=== PATIENT | female | born 1985 | race African-American/Black ===

== ENCOUNTER 2019-04-24 07:02 | Emergency (ER) | payer OTHER ==
[~2019-04-24] VITALS: Ht 157.5 cm; Wt 63.6 kg
[2019-04-24] MEDS ORDERED: IBUPROFEN 600 MG TAB PO ONE (07:45)
--- NOTE | 2019-04-24 09:10 | REP ---
RIGHT HAND, FOUR VIEWS: There is no evidence of an acute fracture, dislocation or intrinsic bone disease. IMPRESSION: No fracture or dislocation. Electronically Signed by Ahsan Billings MD 04/24/2019 04:25 P
[2019-04-24 09:43] VITALS: BP 108/68
== END 2019-04-24 09:43 | disposition home or self-care (01) ==
LOC: M ED 07:02
DX: S60.111A Contusion of right thumb with damage to nail, initial encounter (principal); W23.0XXA Caught, crushed, jammed, or pinched between moving objects, initial encounter; Y92.093 Driveway of other non-institutional residence as the place of occurrence of the external cause; Y92.810 Car as the place of occurrence of the external cause

== ENCOUNTER 2019-06-13 03:46 | Emergency (ER) | payer OTHER ==
[~2019-06-13] VITALS: Ht 157.5 cm; Wt 65.9 kg
[2019-06-13 06:38] LABS: BASO % 0.4 % (0.0-1.0); EOS # 0.1 10^3/uL (0.0-0.50); EOS % 1.6 % (0.0-3.0); HEMATOCRIT 37.8 % (36.0-47.0); HEMOGLOBIN 12.7 g/dl (12.0-15.5); LYMPH # 3.5 10^3/uL (1.5-4.5); LYMPH % 46.9 % (24.0-44.0); MEAN CORPUSCULAR HEMOGLOBIN 32.4 pg (27.0-33.0); MEAN CORPUSCULAR HGB CONC 33.6 g/dl (32.0-36.5); MEAN CORPUSCULAR VOLUME 96.4 fl (80.0-96.0); MONO # 0.6 10^3/uL (0.0-0.8); MONO % 8.2 % (0.0-5.0); NEUTROPHILS # 3.1 10^3/uL (1.8-7.7); NEUTROPHILS % 42.6 % (36.0-66.0); PLATELET COUNT, AUTOMATED 251 10^3/uL (150-450); RED BLOOD COUNT 3.92 10^6/uL (4.00-5.40); WHITE BLOOD COUNT 7.4 10^3/uL (4.0-10.0)
[2019-06-13] MEDS ORDERED: NS 1,000 ML IV ONE (07:00)
[2019-06-13 07:01] LABS: BLOOD UREA NITROGEN 15 MG/DL (7-18); CARBON DIOXIDE LEVEL 27 MEQ/L (21-32); CHLORIDE LEVEL 105 MEQ/L (98-107); CREATININE FOR GFR 0.82 MG/DL (0.55-1.30); GLOMERULAR FILTRATION RATE > 60.0 (>60); GLUCOSE, FASTING 88 MG/DL (70-100); POTASSIUM SERUM 4.2 MEQ/L (3.5-5.1); SODIUM LEVEL 139 MEQ/L (136-145)
[2019-06-13 07:02] LABS: ALBUMIN 3.8 GM/DL (3.2-5.2); ALT/SGPT 21 U/L (12-78); BILIRUBIN,DIRECT < 0.1 MG/DL (0.0-0.2); BILIRUBIN,TOTAL 0.3 MG/DL (0.2-1.0); LIPASE 145 U/L (73-393); TOTAL PROTEIN 7.5 GM/DL (6.4-8.2)
[2019-06-13] MEDS ORDERED: ONDANSETRON 4MG/2ML VIAL (J2405) IV ONE (07:15)
[2019-06-13 10:08] VITALS: BP 102/63
== END 2019-06-13 10:05 | disposition home or self-care (01) ==
LOC: M ED 03:46
DX: A08.4 Viral intestinal infection, unspecified (principal)
CPT/HCPCS: 80048; 80076; 81001; 83690; 84702; 85025; 96361; 96374; 99284; J2405

== ENCOUNTER 2020-01-19 03:21 | Emergency (ER) | payer OTHER ==
[~2020-01-19] VITALS: Ht 157.5 cm; Wt 68.2 kg
[2020-01-19 04:15] LABS: INFLUENZA A AMPLIFICATION NEGATIVE (NEGATIVE); INFLUENZA B AMPLIFICATION POSITIVE (NEGATIVE)
[2020-01-19 04:58] VITALS: BP 109/67
== END 2020-01-19 04:59 | disposition home or self-care (01) ==
LOC: M ED 03:21
DX: J11.89 Influenza due to unidentified influenza virus with other manifestations (principal)

== ENCOUNTER 2020-08-16 06:27 | Emergency (ER) | payer OTHER ==
[~2020-08-16] VITALS: Ht 157.5 cm; Wt 68.8 kg
[2020-08-16] MEDS ORDERED: ACETAMINOPHEN 500 MG TAB PO ONE (07:00)
[2020-08-16] MEDS ORDERED: IBUPROFEN 800 MG TAB PO ONE (07:00)
--- NOTE | 2020-08-16 07:21 | REPVR ---
PROCEDURE INFORMATION: Exam: CT Head Without Contrast Exam date and time: 08/16/2020 6:48 AM Age: 35 years old Clinical indication: Injury or trauma; Fall; Initial encounter; Blunt trauma (contusions or hematomas); Additional info: Fall and injury to face with unknown loc TECHNIQUE: Imaging protocol: Computed tomography of the head without contrast. Radiation optimization: All CT scans at this facility use at least one of these dose optimization techniques: automated exposure control; mA and/or kV adjustment per patient size (includes targeted exams where dose is matched to clinical indication); or iterative reconstruction. COMPARISON: No relevant prior studies available. FINDINGS: Brain: Normal. No hemorrhage. Unremarkable white matter. No mass effect. Ventricles: No ventriculomegaly. Bones/joints: Unremarkable. No acute fracture. Paranasal sinuses: Visualized sinuses are unremarkable. No fluid levels. Mastoid air cells: Visualized mastoid air cells are well aerated. Soft tissues: Unremarkable. IMPRESSION: No acute intracranial abnormality. Electronically signed by: Amalia Ramirez On 08/16/2020 07:21:19 AM
--- NOTE | 2020-08-16 07:22 | REPVR ---
PROCEDURE INFORMATION: Exam: CT Maxillofacial Without Contrast Exam date and time: 08/16/2020 6:48 AM Age: 35 years old Clinical indication: Injury or trauma; Fall; Initial encounter; Blunt trauma (contusions or hematomas); Orbit/periorbital and maxilla; Bilateral; Additional info: Fall and injury to face with unknown loc TECHNIQUE: Imaging protocol: Computed tomography images of the face without contrast. Radiation optimization: All CT scans at this facility use at least one of these dose optimization techniques: automated exposure control; mA and/or kV adjustment per patient size (includes targeted exams where dose is matched to clinical indication); or iterative reconstruction. COMPARISON: No relevant prior studies available. FINDINGS: Orbits: Orbits are normal. Globes are unremarkable. Bones/joints: No acute fracture. Paranasal sinuses: Normal. No air-fluid levels. Soft tissues: Unremarkable. IMPRESSION: No acute findings. Electronically signed by: Amalia Ramirez On 08/16/2020 07:22:34 AM
[2020-08-16 08:13] VITALS: BP 146/72
== END 2020-08-16 08:16 | disposition home or self-care (01) ==
LOC: M ED 06:27
DX: S05.91XA Unspecified injury of right eye and orbit, initial encounter (principal); W01.198A Fall on same level from slipping, tripping and stumbling with subsequent striking against other object, initial encounter; Y92.018 Other place in single-family (private) house as the place of occurrence of the external cause